=== PATIENT | male | born 1945 | race Caucasian/White ===

== ENCOUNTER 2017-01-10 06:56 | Day surgery (SDC) | payer MEDICARE, OTHER ==
[~2017-01-10] VITALS: Ht 177.8 cm; Wt 96.5 kg
--- NOTE | ~2017-01-10 | OR ---
PATIENT'S NAME: [facility] AGE: 71 Y [address] ROOM: [address] [address] LOCATION: [facility] ADMIT DATE: 01/10/2017 OR/Procedure Report DISCHARGE DATE: FAMILY PHYSICIAN: David Izaguirre MD ATTENDING PHYSICIAN: Tunde Anders V SURGEON: Tunde Anders MD CHYRON OPERATOR: VIOLETA Winston. DATE OF PROCEDURE: 01/10/2017 PREOPERATIVE DIAGNOSIS: Right parotid mass. POSTOPERATIVE DIAGNOSIS: Right parotid mass. OPERATION/PROCEDURE: Right superficial parotidectomy with facial nerve dissection. ANESTHESIA: General endotracheal anesthesia. ESTIMATED BLOOD LOSS: Minimal. COMPLICATIONS: None. DESCRIPTION OF PROCEDURE: The patient was taken to the operating room, laid in supine position with general endotracheal anesthesia. Head was rotated to the left. Right face was approached. Proposed incision line was marked and infiltrated with 1% lidocaine with epinephrine solution. The face was prepped and draped in the usual sterile fashion using Betadine solution. A modified Hernando skin incision was then performed using a #15 blade. Subcutaneous tissue was divided using #15 blade. Anterior skin flap was then elevated within the superficial musculoaponeurotic fascia with a #15 blade and retracted with 2-0 silk suture. The earlobe was retracted superiorly with 2-0 silk suture. The parotid gland was from the anterior border of sternocleidomastoid muscle. Subcutaneous tissues were divided using Bovie electrocautery. The greater auricular nerve as well as the external jugular vein were clamped and suture ligated with 3-0 silk suture. Parotid tissue was reflected anteriorly. Dissection was then performed along the tragal pointer. Small vessels were clamped and suture ligated using 3-0 silk sutures. The parotid tissue was reflected anteriorly. Blunt dissection was then performed approximately 1 cm deep and inferior to the tragal pointer. The facial nerve was identified and confirmed using a stimulus probe at 1 milliamp. The zygomatic frontal branch of the facial nerve was followed superiorly. The superior flanking maneuver was performed and the parotid tissue was clamped and suture ligated. The marginal mandibular nerve was then followed inferiorly. Again, flanking maneuver was performed inferiorly, and the superficial parotid tissue was clamped and suture ligated using 3-0 silk suture. The marginal mandibular PATIENT'S NAME: [facility] AGE: 71 Y [address] ROOM: [address] [address] LOCATION: [facility] ADMIT DATE: 01/10/2017 OR/Procedure Report DISCHARGE DATE: FAMILY PHYSICIAN: David Izaguirre MD ATTENDING PHYSICIAN: Tunde Anders V branch of the facial nerve was followed past the angle of the mandible and then directed anteriorly. The zygomaticomaxillary frontal nerves were followed anteriorly, and the parotid tissue was clamped and suture ligated superficial to the branches of the nerves. Parotid tissue between the frontal and zygomatic branches were clamped and suture ligated using 2-0 silk suture. The tumor was noted be within the superficial lobe of the parotid. The buccal branch of the facial nerve was then followed anteriorly to approximately the lateral canthal line. Parotid tissue between the zygomatic and buccal branch the facial nerve were clamped and suture ligated using 3-0 silk suture. The parotid tissue between the marginal mandibular branch and the buccal branch of the facial nerve was clamped and suture ligated removing the superficial lobe of the parotid. This was sent for a permanent pathology. The wound was irrigated with copious amounts of saline solution. The subcutaneous tissues were then approximated using interrupted 5-0 Vicryl suture. Skin closure was performed using a running interlocking 6-0 Ethilon suture. Drain was placed through a separate inferior stab incision prior to wound closure, and this was sutured in place using 2-0 silk suture. The patient tolerated the procedure well, was aroused, extubated, and discharged from the operating room to recovery room in satisfactory condition. TUNDE ANDERS MD TVC/modl /[id number] d: 01/10/17 1803 t: 01/17/17 0714, OPERATIVE SUMMARY
[~2017-01-10 06:56] MED LIST: ALDACTONE100 MG PO; ASCORBIC ACID500 MG PO; ASMANEX220 MC1 INH; ASPIRIN LO-DOSE81 MG PO; CALCIUM600 MG PO; CARAFATE1 GM PO; COREG6.25 MG PO; DUONEB INH; ELIQUIS5 MG PO; FEOSOL325 MG PO; FLOMAX0.4 MG PO; FOLIC ACID1 MG PO; GLUCOSAMINE &1 EAC1 PO; LASIX80 MG PO; LEVOTHROID (SY88 MCG PO; LIPITOR40 MG PO; MAGNESIUM400 M1 PO; MULTI VITAMIN1 EACH PO; OXYGEN M-15 INH; PROTONIX40 MG PO; THIAMINE HCL100 MG PO; VITAMIN D-32000 UNI1 PO
--- NOTE | 2017-01-10 15:23 | NUR ---
Significant Event: Pt to floor at 1400 after a right superficial paratidectomy. Per PACU nurse, pt was larthargic upon arrival in PACU, then when more alert became agitated and combative, also pulled on drain in PACU. Pt has not been combative but agitated with staff at times since arrival to floor. up with 1 assist. Appears disoriented at times, bed alarm on for safety. Incision approximated with sutures, small amt of thin bloody drainage in maricruz drain at this time. Record output q 8hr. Suture removal kit at bedside. Tachycardia 100-114, asymptomatic. ADAT. O2 at night. has back brace on. Titrated down to 2 liters O2 at this time. Follow up:
--- NOTE | 2017-01-11 03:32 | NUR ---
Significant Event: Patient alert and orineted X4. Up with stand by assist. Stands at bedside and uses urinal. Tolerates well. IV saline locked to R) wrist. GOod blood return. Vitals stable and on 2 liters oxygen at night. Took one tylenol #3 at bedtime and states he has had no pain. Denies nausea. Tolerating regular diet. Suture kit at bedside for Dr. Anders. STEVIE to R) side of neck, had 45ml out so far. Record i/o of STEVIE every 8 hours on sheet in room. Plans to go home today. Follow up: Monitor STEVIE
[2017-01-11] MEDS ORDERED: FLONASE 50 MCG/16 GM NOSE (08:05)
[2017-01-11] MEDS ORDERED: TYLENOL WITH C1 EACH PO (08:06)
--- NOTE | 2017-01-11 11:35 | NUR ---
Significant Event: Pt up ad sara. Tolerating regular diet. STEVIE drain removed to right neck by MD. Incision to right neck oozing a sm amt of blood, bandaid x2 applied. Vs stable. Dc. to home with at 0930. Follow up:
--- NOTE | 2017-01-11 12:34 | NUR ---
DISCHARGE: Pt. was explained discharge instructions, educated on parathyroidectomy d/c and med education on tylenol #3. and patient verbalized understanding, no questions or concerns. IV removed by primary nurse. Left with all belongings and prescriptions. Taken to front door by aide and driven home by .
== END 2017-01-11 09:45 | disposition disaster alternative care site (69) ==
LOC: GSDC 06:56 → GMSU 06:56 → GSDC 07:00 → GMSU 15:19 → GSDC 01-11 09:45
PROC: 0CB80ZZ Excision of Right Parotid Gland, Open Approach (ICD-10-PCS; principal; 2017-01-10)
PROC: 00BM0ZZ Excision of Facial Nerve, Open Approach (ICD-10-PCS; 2017-01-10)
DX: D11.0 Benign neoplasm of parotid gland (principal); I25.810 Atherosclerosis of coronary artery bypass graft(s) without angina pectoris; I11.0 Hypertensive heart disease with heart failure; I50.9 Heart failure, unspecified; I48.91 Unspecified atrial fibrillation; K21.9 Gastro-esophageal reflux disease without esophagitis; F32.9 Major depressive disorder, single episode, unspecified; J44.9 Chronic obstructive pulmonary disease, unspecified; E03.9 Hypothyroidism, unspecified; E78.5 Hyperlipidemia, unspecified; Z99.81 Dependence on supplemental oxygen; Z79.82 Long term (current) use of aspirin; Z79.899 Other long term (current) drug therapy
CPT/HCPCS: J1100; J2001; J2250; J2405; J3010; J7030